=== PATIENT | female | born 1980 | race Caucasian/White ===

== ENCOUNTER → 2016-07-07 | Outpatient (CLI) | payer OTHER ==
[~2016-07-07] MED LIST: IUD'IUD INT UTER; MTR600X PO; PRENTAB26 PO; VNTHFA/IN INH
--- NOTE | 2016-07-07 11:58 | DIAGNOSTIC IMAGING REPORT ---
MRI OF THE RIGHT KNEE CLINICAL HISTORY: Right knee injury. Ski injury. COMPARISON STUDY: No priors. TECHNIQUE: MRI of the right knee was performed utilizing proton density, T1, and T2-weighted sequences in the axial, sagittal, coronal planes. IV contrast was not administered for this examination. Note that interpretation is suboptimal without plain film correlate. FINDINGS: Menisci: There is linear increased signal identified within the posterior horn of the medial meniscus. This is not clearly extend to the articular surface of. The lateral meniscus is Intact. Ligaments: Findings are consistent with rupture of the anterior cruciate ligament. The posterior cruciate ligament is intact. There is thickening and irregularity of the fibular collateral ligament consistent with partial thickness tear. The majority of the fibers remain intact. The iliotibial band is within normal limits. The popliteus tendon is intact. The medial collateral ligament is preserved. Extensor mechanism: The extensor mechanism is intact. Hoffa's fat pad is normal in appearance. Articular cartilage and bone: The articular cartilage is intact and well maintained all 3 compartments. There are bony contusions identified within the posterior aspect of the medial and lateral tibial plateau. Mild contusion is also seen within the medial femoral condyle. Joint effusion: There is a large joint effusion. Soft tissues: There is soft tissue edema identified around the knee, greatest laterally. Soft tissue edema is also present within the popliteal fossa. The musculature surrounding the knee joint is normal in bulk and signal intensity. A tiny popliteal cyst is observed. IMPRESSION: 1. Findings are consistent with rupture of the anterior cruciate ligament. 2. There is partial thickness tearing of the lateral collateral ligament. 3. Large joint effusion. 4. Bony contusion is seen within the posterior aspect of the tibial plateau and the medial femoral condyle. 5. There is linear increased signal within the posterior horn of the medial meniscus. This there is not clearly extend to the articular surface and could represent intrasubstance tear versus mucoid degeneration. 6. Soft tissue edema is present around the knee. Electronically signed by: Guillermo Daniels M.D. 07/07/2016 11:56 AM Dictated Date/Time: 07/07/2016 11:50 AM
== END | disposition home or self-care (01) ==
LOC: C.MRI 10:20
PROVIDERS: ATTEND Physical Medicine & Rehabilitation Sports Medicine
DX: S83.511D Sprain of anterior cruciate ligament of right knee, subsequent encounter (principal); X58.XXXA Exposure to other specified factors, initial encounter

== ENCOUNTER → 2016-07-30 | Day surgery (SDC) | payer OTHER ==
[2016-07-20 09:53] VITALS: Ht 162.6 cm; Wt 59.1 kg
[~2016-07-30] VITALS: Ht 162.6 cm; Wt 59.1 kg
[~2016-07-30] MED LIST changes: +ATROPINE SULFATE 0.1 MG/ML 5ML SYR IV PRN; +CEFAZOLIN 2000 MG/60 ML D5W IV SCH; +DEXAMETHASONE SOD INJ 4 MG/ML VIAL IV PRN; +DEXAMETHASONE SOD INJ 4 MG/ML VIAL ONE; +EpHEDrine SULFATE INJ 50 MG/ML AMP IV PRN; +FENTANYL CITRATE INJ 50 MCG/1 ML 2 ML VIAL IV PRN; +FENTANYL CITRATE INJ 50 MCG/1 ML 2 ML VIAL ONE; +HYDROmorphone INJ 1 MG/ML SYR ONE; +KETOROLAC TROMETHAMINE 30 MG/ML VIAL IV. PRN; +LABETALOL HCL IV 5 MG/ML 20ML IV PRN; +LACTATED RINGER'S 1000ML 1,000 ML IV SCH; +LEVOFLOXACIN 500 MG TAB PO SCH; +LIDOCAINE HCL 1% MPF 2 ML VIAL ONE; +LIDOCAINE HCL 2% 2 ML VIAL (20MG/ML) ONE; +METOCLOPRAMIDE HCL INJ 5 MG/ML 2 ML VIAL IV PRN; +MIDAZOLAM HCL 1 MG/ML 2ML VIAL ONE; -MTR600X PO; +MoRPHine SULFATE 10 MG/ML CARP/VIAL IV PRN; +ONDANSETRON INJ 2 MG/ML 2 ML VIAL IV PRN; +ONDANSETRON INJ 2 MG/ML 2 ML VIAL ONE; +OXYCODONE/ACETAMINOPHEN 5-325 TAB PO PRN; +PHENYLEPHRINE 100MCG/ML 5ML SYR IV PRN; -PRENTAB26 PO; +PROPOFOL IV EMULSION 10 MG/ML 20 ML VIAL IV ONE; +ROPIVACAINE 0.5% 5 MG/ML 30 ML VIAL ONE; +SODIUM CHLORIDE 0.9% 1000ML 1,000 ML IV SCH
--- NOTE | 2016-07-30 08:22 | History & Physical Bridge Note ---
H&P Re-Evaluation Bridge Note: I have examined the patient, reviewed the History & Physical and in the interval since the performance of the History & Physical I have noted the following changes of clinical significance: No changes noted
--- NOTE | 2016-07-30 08:24 | Discharge Instructions ---
Discharge Instructions Date of Service July 30, 2016. Visit Reason for Visit: Right Knee Acl Tear, Meniscus Tear Discharge Discharge Diagnosis / Problem: same Discharge Goals Goal(s): Decrease discomfort, Improve function Medications Stopped Medications Name(s): na Restart Stopped Medication(s): resume all scripts as directed except BCP's Activity Recommendations Activity Limitations: as noted below Lifting Limitations: until after follow-up appointment Exercise/Sports Limitations: until after follow-up appointment May Resume Sexual Activity: when tolerated Shower/Bathe: keep incision dry Weightbearing Status: Right toe touch Anesthesia . Post Anesthesia Instructions: If you have had General Anesthesia or IV Sedation: * Do not drive today. * Resume driving when surgeon permits. * Do not make important decisions or sign legal documents today. * Call surgeon for: 1. Temperature elevations greater than 101 degrees F. 2. Uncontrollable pain. 3. Excessive bleeding. 4. Persistent nausea and vomiting. 5. Medication intolerance (nausea, vomiting or rash). * For nausea and vomiting use only clear liquids such as: tea, soda, bouillon until nausea subsides, then gradually increase diet as tolerated. * If you have any concerns or questions, call your surgeon's office. If physician is unavailable and it is an emergency, call 911 or go to the nearest emergency room. . Diet Recommendations Recommended Home Diet: resume previous diet Procedures Procedures Performed: see op note Pending Studies Studies pending at discharge: no Medical Emergencies . Who to Call and When: Medical Emergencies: If at any time you feel your situation is an emergency, please call 911 immediately. . Non-Emergent Contact Non-Emergency issues call your: Specialist Call Non-Emergent contact if: temperature is above 101.5 . . "Provider Documentation" section prepared by Jack Townsend. .
--- NOTE | 2016-07-30 09:58 | [facility] Post Operative Brief Note ---
Immediate Operative Summary Operative Date July 30, 2016. Pre-Operative Diagnosis Right Knee Anterior Cruciate Ligament Tear, Meniscus Tear Post-Operative Diagnosis Same Procedure(s) Performed Right Knee Endoscopic ACL Reconstruction With Patellar Tendon Autograft, Exam Under Anesthesia Surgeon Dr Townsend Skin Former Surgeon(s) Svetlana Crook PA-C Estimated Blood Loss 25ml Findings acl tear/cmp/lm scuff Fluids (cc crystalloids) 1400cc Specimens None Drains none Anesthesia LMA/block Complication(s) None Disposition Recovery Room / PACU
--- NOTE | 2016-07-30 10:34 | OPERATIVE REPORT ---
DATE OF OPERATION: 07/30/2016 PREOPERATIVE DIAGNOSIS: Anterior cruciate ligament tear, right knee. POSTOPERATIVE DIAGNOSIS: Same. OPERATION PERFORMED: 1. Exam under anesthesia. 2. Diagnostic arthroscopy. 3. Endoscopic ACL reconstruction using central one-third patellar tendon autograft. 4. Chondroplasty of medial facet of patella. SURGEON: Dr. Townsend. ACTION INSTALLER: Dr. Naveed Martinez. SECOND ACTION INSTALLER: Jim Mccray PA-C. PERIOPERATIVE SITUATION: Medically cleared female, very active leads a very aggressive lifestyle with her job who injured herself hiking, sustained an ACL injury. Physical exam, x-ray and MRI scan consistent with same. There was some minor changes in the meniscus as well. These will be assessed at the time of arthroscopy and were found not to have any surgical great tear. There was a small superficial femoral scuff of the lateral meniscus. There was complete high femoral tear of the ACL. The rest of the ligaments were normal on exam under anesthesia. OPERATION AND FINDINGS: PROCEDURE: The patient appropriately identified, site verified, consent verified, 2 grams of Ancef confirmed as being given. The knee was examined revealing grossly positive Harrison and pivot sift, anterior drawer test and Lelli test. The collateral ligaments, posterolateral and posteromedial corners were intact. The PCL was normal. Leg was prepped and draped in usual routine fashion. Tourniquet inflated to 275 mmHg after exsanguinating sanguineous limb with a rubber Esmarch bandage for a total of 57 minutes. Anteromedial incision made, the patellar tendon then harvested 10 mm wide with bone blocks being 20 x 10 x 5 off the patella and 30 x 10 x 5 off the tibia. They were then tagged with #2 Ethibond on the tibia and TightRope on the patella. It was then placed in a sterile specimen container. The knee was then scoped through an inframedial and infralateral portal with the portals made through the harvest site. Inspection of the joint revealed relatively normal tracking of the patella. The medial facet had some chondromalacia. This was debrided. It was partial thickness in about a cm2 area. The rest of the patella was normal. The medial and lateral gutters were examined revealing no loose bodies. The medial compartment had healthy articular surfaces and healthy medial meniscus. The PCL was intact. The ACL was a high femoral origin tear, was very hemorrhagic throughout its substance, was easily eaten by the shaver. A limited notchplasty performed. The lateral meniscus was inspected revealing no peripheral tear, had a small superficial partial thickness femoral surface tear that was left alone. The articular surfaces were healthy. No major impaction injury noted. The tibial guide was then seated and the center to footprint of the tibial insertion and a 10 mm tunnel made. All bone debris removed. It was then flattened with a semicircular rasp and a regular rasp. A femoral guide was then placed transtibially in excellent position in the footprint of the femoral origin of the ACL. Guide pin passed and then a 22 mm socket made. The bone debris removed. The knee was then irrigated copiously and all bone debris removed. The graft was then passed and secured on the femur with a TightRope and on the tibia with a 9 x 20 mm fully threaded screw. Excellent fixation was obtained. The knee was examined revealing full hyperextension, full flexion, stable Harrison, pivot shift, anterior drawer test. The wound was then irrigated. The fascia closed with #1 Vicryl, peritenon with 2-0 Vicryl. Bone trimming was used to graft the patellar harvest site, the subcutaneous layer with 2-0 plain and the skin with a running subcuticular 2-0 Prolene. Appropriate dressing applied and a knee brace. The patient was then transferred to recovery room in satisfactory condition having tolerated the procedure well. Deep venous thrombosis prophylaxis per protocol. Suggested to stop all BCPs. Minimize risk for DVT, PE. Follow up in the office for PT on Tuesday and dressing change and suture removal will occur in 2 weeks. I attest to the content of the Intraoperative Record and any orders documented therein. Any exceptio ns are noted below.
[2016-07-30 10:53] VITALS: TEMP 36.9
--- NOTE | 2016-07-30 10:59 | OPERATIVE REPORT ---
PREOPERATIVE DIAGNOSIS: Right knee anterior cruciate ligament tear. POSTOPERATIVE DIAGNOSIS: Right knee same. PROCEDURE: Right knee ACL reconstruction using patellar tendon autograft. SURGEON: Dr. Townsend. LEATHER POLISHER: Dr. Naveed Martinez. SECOND GREY PERCHER: Jim Mccray PA-C. HISTORY OF PRESENT ILLNESS: This 35-year-old white female presented to the office with complaints of right knee instability after injuring herself while skiing. X-ray and MRI were obtained confirming an ACL tear. She elected to proceed with surgical intervention after being educated about potential risks and outcomes. OPERATION: The patient was administered regional block and then taken to the operating room where she was given general anesthesia. She was prepped and draped in the usual sterile fashion. Please see Dr. Towsnend's operative report for specifics of the procedure. I was present for the entire case from initial patient positioning through final wound closure. Assistance was provided in arthroscopy, tissue retraction, hemostasis, graft harvest, graft placement, hardware placement, and final wound closure. The patient was taken to the recovery room in satisfactory condition.
[2016-07-30 12:17] VITALS: BP 108/71; PULSE 83; O2SAT 95
--- NOTE | 2016-07-30 12:26 | Anesthesia Progress Nt - [facility] ---
Anesthesia Post Op Note Date & Time July 30, 2016 at 12:25 Vital Signs Pain Intensity: 5 Vital Signs Past 12 Hours Date Time Temp Pulse Resp B/P Pulse Ox O2 Delivery O2 Flow Rate FiO2 07/30/16 12:17 83 16 108/71 95 Room Air 07/30/16 11:33 63 18 116/75 100 Room Air 07/30/16 10:53 36.9 85 20 123/75 100 Room Air 07/30/16 10:47 37.3 99 Room Air 07/30/16 10:45 135/91 07/30/16 10:43 74 5 94 07/30/16 10:43 74 5 07/30/16 10:41 117/75 07/30/16 10:38 71 15 07/30/16 10:38 63 15 100 07/30/16 10:37 85 15 07/30/16 10:37 82 15 100 07/30/16 10:36 122/75 07/30/16 10:32 79 10 100 07/30/16 10:32 80 10 07/30/16 10:31 122/81 07/30/16 10:27 89 9 07/30/16 10:27 96 9 97 07/30/16 10:26 123/85 07/30/16 10:24 97 9 07/30/16 10:24 99 9 97 07/30/16 10:21 125/72 07/30/16 10:19 89 11 07/30/16 10:19 87 11 100 07/30/16 10:16 121/79 07/30/16 10:14 89 10 07/30/16 10:14 89 10 99 07/30/16 10:11 125/81 07/30/16 10:09 88 11 07/30/16 10:09 88 11 99 07/30/16 10:07 113/73 07/30/16 10:06 36.6 75 12 113/73 99 Mask 7 07/30/16 08:34 72 18 100 07/30/16 08:34 73 07/30/16 08:33 72 07/30/16 08:33 72 14 100 07/30/16 08:31 108/62 07/30/16 08:28 98 07/30/16 08:28 98 25 100 07/30/16 08:26 126/82 07/30/16 08:23 93 0 07/30/16 08:18 0 07/30/16 08:13 86 0 07/30/16 08:08 89 0 07/30/16 08:03 80 0 07/30/16 07:58 89 0 07/30/16 06:54 37.2 96 16 118/72 99 Room Air Notes Mental Status: alert / awake / arousable, participated in evaluation Pt Amnestic to Procedure: Yes Nausea / Vomiting: improving with treatment Pain: adequately controlled Airway Patency, RR, SpO2: stable & adequate BP & HR: stable & adequate Hydration State: stable & adequate Anesthetic Complications: no major complications apparent
== END | disposition home or self-care (01) ==
LOC: X.SURG 06:43
PROVIDERS: ATTEND Physical Medicine & Rehabilitation Sports Medicine
DX: S83.511A Sprain of anterior cruciate ligament of right knee, initial encounter (principal); X58.XXXA Exposure to other specified factors, initial encounter; Y93.23 Activity, snow (alpine) (downhill) skiing, snowboarding, sledding, tobogganing and snow tubing; Z68.22 Body mass index [BMI] 22.0-22.9, adult; J45.909 Unspecified asthma, uncomplicated; Z98.818 Other dental procedure status; Z98.890 Other specified postprocedural states

== ENCOUNTER → 2016-09-06 | Outpatient (CLI) | payer OTHER, BC ==
[~2016-09-06] MED LIST changes: -ATROPINE SULFATE 0.1 MG/ML 5ML SYR IV PRN; -CEFAZOLIN 2000 MG/60 ML D5W IV SCH; -DEXAMETHASONE SOD INJ 4 MG/ML VIAL IV PRN; -DEXAMETHASONE SOD INJ 4 MG/ML VIAL ONE; -EpHEDrine SULFATE INJ 50 MG/ML AMP IV PRN; -FENTANYL CITRATE INJ 50 MCG/1 ML 2 ML VIAL IV PRN; -FENTANYL CITRATE INJ 50 MCG/1 ML 2 ML VIAL ONE; -HYDROmorphone INJ 1 MG/ML SYR ONE; -KETOROLAC TROMETHAMINE 30 MG/ML VIAL IV. PRN; -LABETALOL HCL IV 5 MG/ML 20ML IV PRN; -LACTATED RINGER'S 1000ML 1,000 ML IV SCH; -LEVOFLOXACIN 500 MG TAB PO SCH; -LIDOCAINE HCL 1% MPF 2 ML VIAL ONE; -LIDOCAINE HCL 2% 2 ML VIAL (20MG/ML) ONE; -METOCLOPRAMIDE HCL INJ 5 MG/ML 2 ML VIAL IV PRN; -MIDAZOLAM HCL 1 MG/ML 2ML VIAL ONE; -MoRPHine SULFATE 10 MG/ML CARP/VIAL IV PRN; -ONDANSETRON INJ 2 MG/ML 2 ML VIAL IV PRN; -ONDANSETRON INJ 2 MG/ML 2 ML VIAL ONE; -OXYCODONE/ACETAMINOPHEN 5-325 TAB PO PRN; -PHENYLEPHRINE 100MCG/ML 5ML SYR IV PRN; -PROPOFOL IV EMULSION 10 MG/ML 20 ML VIAL IV ONE; -ROPIVACAINE 0.5% 5 MG/ML 30 ML VIAL ONE; -SODIUM CHLORIDE 0.9% 1000ML 1,000 ML IV SCH
== END | disposition home or self-care (01) ==
LOC: C.RDSM 12:23
PROVIDERS: ATTEND Physical Medicine & Rehabilitation Sports Medicine
DX: S83.511D Sprain of anterior cruciate ligament of right knee, subsequent encounter (principal); X58.XXXA Exposure to other specified factors, initial encounter